=== PATIENT | female | born 1995 | race Caucasian/White ===

== ENCOUNTER → 2018-06-10 | Outpatient (CLI) | payer SELFPAY ==
[2018-06-10 17:32] LABS: HEMATOCRIT 34.4 % (36.0-47.0); HEMOGLOBIN 11.9 g/dl (12.0-15.5); MEAN CORPUSCULAR HEMOGLOBIN 30.9 pg (27.0-33.0); MEAN CORPUSCULAR HGB CONC 34.6 g/dl (32.0-36.5); MEAN CORPUSCULAR VOLUME 89.4 fl (80.0-96.0); PLATELET COUNT, AUTOMATED 198 10^3/uL (150-450); RED BLOOD COUNT 3.85 10^6/uL (4.00-5.40); WHITE BLOOD COUNT 11.2 10^3/uL (4.0-10.0)
[2018-06-12 15:48] LABS: HEPATITIS B SURFACE ANTIGEN NEGATIVE (NEGATIVE); HIV 1&2 SCREEN CENTAUR NEGATIVE (NEGATIVE)
== END ==
LOC: M SMT 14:39
PROVIDERS: ATTEND Advanced Practice Midwife
DX: Z36.89 Encounter for other specified antenatal screening (principal)

== ENCOUNTER → 2018-07-08 | Outpatient (REF) | payer SELFPAY | LOC: M LAB REF 16:48 | PROVIDERS: ATTEND Advanced Practice Midwife | DX: Z34.83 Encounter for supervision of other normal pregnancy, third trimester (principal) ==

== ENCOUNTER 2018-07-30 06:47 | Inpatient (IN) | payer SELFPAY ==
[~2018-07-30] VITALS: Ht 162.6 cm; Wt 72.9 kg
[2018-07-30] VITALS (14 sets, daily range): BP systolic 112–132; BP diastolic 62–86
[2018-07-30] MEDS ORDERED: MAPA500T2 PO (07:36)
[2018-07-30] MEDS ORDERED: AZITHROMYCIN 250 MG TAB PO SCH ×2 (09:00→09:45)
[2018-07-30] MEDS ORDERED: guaiFENesin DM *SUGAR FREE* 5ML**DIABETIC TUSSIN DM PO PRN (09:45)
[2018-07-30] MEDS ORDERED: PSEUDOEPHEDRINE 30 MG TAB PO PRN ×2 (09:45→17:15)
[2018-07-30 09:57] LABS: HEMATOCRIT 37.6 % (36.0-47.0); HEMOGLOBIN 13.2 g/dl (12.0-15.5); MEAN CORPUSCULAR HEMOGLOBIN 31.4 pg (27.0-33.0); MEAN CORPUSCULAR HGB CONC 35.1 g/dl (32.0-36.5); MEAN CORPUSCULAR VOLUME 89.3 fl (80.0-96.0); PLATELET COUNT, AUTOMATED 235 10^3/uL (150-450); RED BLOOD COUNT 4.21 10^6/uL (4.00-5.40); WHITE BLOOD COUNT 17.9 10^3/uL (4.0-10.0)
[2018-07-30] MEDS ORDERED: guaiFENesin SYRUP 200 MG/10 ML UDC PO PRN ×2 (10:15→17:15)
[2018-07-30] MEDS ORDERED: OXYTOCIN 30 UNITS IN 0.9% NaCl 500ML IV BAG (J2590) As Ordered ONE (14:03)
[2018-07-30] MEDS ORDERED: OXYTOCIN DRIP 30 UNITS in APPROPRIATE DILUENT 1 EA IV SCH (16:15)
[2018-07-30] MEDS ORDERED: RHOGAM 300 MCG (1500 IU) INJ (J2790) IM SCH (16:15)
[2018-07-30] MEDS ORDERED: ACETAMINOPHEN 500 MG TAB PO PRN (16:15)
[2018-07-30] MEDS ORDERED: ANUSOL HC CREAM 30GM TOP PRN (16:15)
[2018-07-30] MEDS ORDERED: IBUPROFEN 800 MG TAB PO PRN (16:15)
[2018-07-30] MEDS ORDERED: MEASLES,MUMPS,RUBELLA VACCINE INJ (MMR-II) (90707) SC SCH (16:15)
[2018-07-30] MEDS ORDERED: DOCUSATE SODIUM 100 MG CAP PO PRN (16:15)
[2018-07-30] MEDS ORDERED: METHYLERGONOVINE MALEATE 0.2 MG TAB PO PRN (16:15)
[2018-07-30] MEDS ORDERED: MOM 30ML SUSPENSION UDC PO PRN (16:15)
[2018-07-30] MEDS ORDERED: DIBUCAINE 1% OINTMENT 30GM TOP PRN (16:15)
[2018-07-30] MEDS ORDERED: LIDOCAINE 1% MDV 20ML VIAL INFIL ONE (16:30)
--- NOTE | 2018-07-30 21:57 | HPE ---
DATE OF ADMISSION: 07/30/2018 HISTORY OF PRESENT ILLNESS Mrs. Hooker is a 22-year-old 2, para 1 who presents at 38 weeks 5 days estimated gestational age by last menstrual period here with complaints of contractions. She reports active movement, denies any vaginal bleeding or leakage of fluid. She has also had a productive cough for two weeks. She denies fever or chills. She has had minimum course. She initiated care at 31 weeks and had three or four appointments following. PAST SURGICAL HISTORY: None. OBSTETRICAL HISTORY She is 2, para 1. She has had one term vaginal delivery proven to 7 pounds 4 ounces. SOCIAL HISTORY She is of [employer] descent. She lives at home with her and her son. She denies any alcohol, tobacco or drug use during . PHYSICAL EXAMINATION Vital signs: Stable. She is afebrile. General appearance: Well appearing. No acute distress. She has category 1 heart tracing. Contractions on tocometer. Lungs: wheezing bilaterally. Cardiovascular: Heart regular rate and rhythm. Abdomen is gravid, nontender, estimated weight 3400 grams. Cervical examination: She is 5 cm dilated, 90% effaced, -2 station. LABS: Blood type is B+, antibody screen is negative. RPR is nonreactive. Hepatitis surface antigen negative, HIV is negative. She is GBS negative. ASSESSMENT: 1. Mrs. Hooker is a 22-year-old 2, para 1 at 38 weeks 5 days estimated gestational age here in active labor. 2. Reassuring status. 3. Upper respiratory infection PLAN Admit to labor and delivery, CBC, RPR, type and screen. Sudafed and Robitussin Anticipate spontaneous vaginal delivery. MTDD
--- NOTE | 2018-07-30 22:14 | DN ---
DATE OF DELIVERY: 07/30/2018 TIME OF : 1510 hours GENDER: Male. SCORES: 8 and 9. WEIGHT: 3190 grams or 7 pounds 1 ounce. LACERATION: First-degree midline laceration. ESTIMATED BLOOD LOSS: 300 mL. ANESTHESIA: None. COUNTS: Five laparotomy sponges accounted for prior to after delivery, two sharps removed from delivery field. DELIVERY NOTE: On 07/30/2018 at 1510 hours, Mrs. Hooker, a 22-year-old 2, now para 2 had a spontaneous vaginal delivery of a live born male , scores 8 and 9, weight was 3190 grams, 7 pounds 1 ounce. Head was delivered left occiput anterior (LATOYA), and there was a nuchal cord, which manually reduced followed by delivery of right anterior shoulder, left posterior shoulder and corpus. Infant was handed to mom with a good cry. Cord was clamped times two, was cut by the father of the baby under my direction. The placenta was then drained and delivered grossly intact. A premixed bag of 500 mL of normal saline with 30 units of Pitocin was then bolused along with uterine massage, uterus was firm. On inspection, there was a first-degree midline laceration, and this was infused with 1% lidocaine and then was repaired with #3-0 Vicryl Rapide. On reinspection, cervix, vagina and perineum was grossly intact, hemostatic. Mom and baby in recovery in stable condition.
[2018-07-31 06:40] VITALS: BP 123/79
[2018-07-31] MEDS ORDERED: MAPA500T2 PO (07:19)
[2018-07-31] MEDS ORDERED: PRENTAB9 PO (07:19)
[2018-07-31] MEDS ORDERED: ZITH500T PO (07:19)
[2018-07-31] MEDS ORDERED: ROBILIQ22 PO (07:19)
[2018-07-31] MEDS ORDERED: PSEU60TA23 PO (07:19)
[2018-07-31] MEDS ORDERED: MOM30SS PO (07:19)
[2018-07-31] MEDS ORDERED: COLA100C5 PO (07:19)
[2018-07-31] MEDS ORDERED: IBUP-1114 PO (07:19)
[2018-07-31] MEDS ORDERED: ZITH250T PO (07:51)
[2018-07-31] MEDS ORDERED: PRENATAL VITAMINS CHEWABLE TABLET PO SCH (09:00)
[2018-07-31] MEDS ORDERED: AZITHROMYCIN 250 MG TAB PO SCH (09:00)
== END 2018-07-31 16:45 | disposition home or self-care (01) | DRG 560 ==
LOC: M LDO 06:47 → M LDI 09:13 → M OBS 19:03
PROVIDERS: ADMIT Obstetrics & Gynecology; ATTEND Obstetrics & Gynecology
PROC: 10E0XZZ Delivery of Products of Conception, External Approach (ICD-10-PCS; principal; 2018-07-30)
PROC: 0HQ9XZZ Repair Perineum Skin, External Approach (ICD-10-PCS; 2018-07-30)
DX: O99.52 Diseases of the respiratory system complicating childbirth (principal); O09.32 Supervision of pregnancy with insufficient antenatal care, second trimester; Z37.0 Single live birth; Z3A.38 38 weeks gestation of pregnancy; J06.9 Acute upper respiratory infection, unspecified; O09.31 Supervision of pregnancy with insufficient antenatal care, first trimester; O70.0 First degree perineal laceration during delivery